=== PATIENT | male | born 1960 | race Caucasian/White ===

== ENCOUNTER 2017-08-09 06:36 | Day surgery (SDC) | payer OTHER ==
[2017-08-09] MEDS ORDERED: BUPIVACAINE 0.25% 30 ML SDV ONE (07:07)
[2017-08-09] MEDS ORDERED: LR 1,000 ML IV ONE (07:07)
[2017-08-09] MEDS ORDERED: CLINDAMYCIN 900 MG/DEXTROSE 50 ML IV ONE (07:07)
[2017-08-09] MEDS ORDERED: LIDOCAINE 1% 2 ML INJ ID PRN (07:38)
[2017-08-09] MEDS ORDERED: LIDOCAINE 1% 2 ML INJ ONE (07:40)
--- NOTE | 2017-08-09 07:52 | PDHPUP ---
History & Physical Update H&P update statement: This history and physical update is based on an assessment of the patient which was completed after admission or registration (within 24 hours), but prior to the surgery/procedure. H&P update: H&P reviewed & patient examined, no change in patient's condition since H&P completed
[2017-08-09] MEDS ORDERED: MIDAZOLAM 2 MG/2 ML VIAL IVP ONE (07:57)
--- NOTE | 2017-08-09 07:57 | PDANEPAE ---
ANE History of Present Illness B IH laparoscopic repair ANE Past Medical History - Cardiovascular History Hx Hypertension: Yes Hx Arrhythmias: No Hx Chest Pain: No Hx Coronary Artery / Peripheral Vascular Disease: No Hx CHF / Valvular Disease: No Hx Palpitations: No - Pulmonary History Hx COPD: No Hx Asthma/Reactive Airway Disease: No Hx Recent Upper Respiratory Infection: No Hx Oxygen in Use at Home: No Hx Sleep Apnea: No Pulmonary History Comment: Allergic rhinitis - Neurologic History Hx Cerebrovascular Accident: No Hx Seizures: No Hx Dementia: No - Endocrine History Hx Diabetes: No - Renal History Hx Renal Disorders: No - Liver History Hx Hepatic Disorders: No - Neurological & Psychiatric Hx Hx Neurological and Psychiatric Disorders: No - Cancer History Hx Cancer: No - Congenital Disorder History Hx Congenital Disorders: No - GI History Hx Gastrointestinal Disorders: No - Other Health History Other Health History: n/a - Chronic Pain History Chronic Pain: No - Surgical History Prior Surgeries: R tibia 1974. R knee 1982. Cholysectomy 2011 ANE Review of Systems Review of systems is: negative Review of Systems: - Exercise capacity METS (RN): 5 METS ANE Patient History - Allergies Allergies/Adverse Reactions: Penicillins Allergy (Verified 08/09/17 07:34) - Home Medications Home medications: home medication list seen and reviewed Home Medications: Losartan Potassium 08/09/17 [Last Taken 08/08/17] - NPO status NPO Status: no food or drink >8 hours NPO Since - Liquids (Date): 08/09/17 NPO Since - Liquids (Time): 00:00 NPO Since - Solids (Date): 08/08/17 NPO Since - Solids (Time): 22:00 - Anes Hx Anes Hx: no prior problems - Smoking Hx Smoking Status: Never smoked - Family Anes Hx Family Anes Hx: none Family Hx Anesthesia Complications: none. ANE Labs/Vital Signs - Vital Signs Vital Signs: reviewed preoperatively; see RN documention for details Blood Pressure: 145/97 Heart Rate: 65 Respiratory Rate: 18 O2 Sat (%): 99 Height: 185.42 cm Weight: 92.079 kg ANE Physical Exam - Airway Neck exam: FROM Mallampati Score: Class 1 Mouth exam: normal dental/mouth exam - Pulmonary Pulmonary: no respiratory distress - Cardiovascular Cardiovascular: regular rate and rhythym - ASA Status ASA Status: II ANE Anesthesia Plan Anesthesia Plan: general endotracheal anesthesia
[2017-08-09] MEDS ORDERED: DEXAMETHASONE 4 MG/ML VIAL ONE (08:12)
[2017-08-09] MEDS ORDERED: ROCURONIUM 50 MG/5 ML VIAL ONE (08:12)
[2017-08-09] MEDS ORDERED: PROPOFOL 200 MG/20 ML VIAL ONE ×2 (08:12→08:34)
[2017-08-09] MEDS ORDERED: ONDANSETRON 4 MG/2 ML VIAL ONE (08:12)
[2017-08-09] MEDS ORDERED: LIDOCAINE 2% 100 MG/5 ML SYR ONE (08:12)
[2017-08-09] MEDS ORDERED: fentaNYL 250 MCG/5 ML INJ ONE (08:12)
[2017-08-09] MEDS ORDERED: SUGAMMADEX SODIUM 200 MG/2 ML VIAL IVP ONE (08:12)
[2017-08-09] MEDS ORDERED: MEPERIDINE 25 MG/0.5 ML AMP IVP PRN (09:07)
[2017-08-09] MEDS ORDERED: ENALAPRILAT DIHYDRATE 1.25 MG/ML VIAL IVP PRN (09:07)
[2017-08-09] MEDS ORDERED: PROMETHAZINE HCL 25 MG/ML INJ IVP PRN (09:07)
[2017-08-09] MEDS ORDERED: HYDROmorphONE/DILAUDID 1 MG/ML INJ IVP PRN (09:07)
[2017-08-09] MEDS ORDERED: ACETAMINOPHEN 500 MG TAB PO PRN (09:07)
[2017-08-09] MEDS ORDERED: HYDROCODONE/APAP 5/325 TAB PO PRN (09:07)
[2017-08-09] MEDS ORDERED: NALOXONE HCL 0.4 MG/ML INJ IVP PRN (09:07)
[2017-08-09] MEDS ORDERED: ONDANSETRON 4 MG/2 ML VIAL IVP PRN (09:07)
[2017-08-09] MEDS ORDERED: fentaNYL 100 MCG/2 ML INJ IVP PRN (09:07)
[2017-08-09] MEDS ORDERED: DEXAMETHASONE 4 MG/ML VIAL IVP PRN (09:07)
--- NOTE | 2017-08-09 09:10 | POSTANESTH ---
Post Anesthetic Evaluation Cardiovascular Status: Normal, Stable, Similar to Pre-Op Cond Respiratory Status: Normal, Stable, Similar to Pre-op Cond. Level of Consciousness/Mental Status: Can Participate in Eval, Mildly Sleepy, Arousable Pain Control: Adequate, Prn Tx Ordered Nausea/Vomiting Control: Adequate, Prn Tx Ordered Complications Possibly Related to Anesthesia: None Noted
[2017-08-09] MEDS ORDERED: THROMBIN (BOVINE) 20,000 UNIT SPRAY TP ONE (09:13)
--- NOTE | 2017-08-09 09:45 | POSTOPPROG ---
Post Op Note Date of Operation: 08/09/17 Surgeon: Jason Mclaughlin Funeral Assistant: Dennise Lindsay Anesthesiologist: Manish Oglesby Anesthesia: GET(General Endotracheal) Pre-op Diagnosis: BIH Post-op Diagnosis: same Procedure: lap BIH repair c mesh Findings: indirect sac with cord lipoma on right, direct hernia on left Inf/Abcess present in the surg proc area at time of surgery?: No EBL: 20cc Complications: none Specimen(s): none
[2017-08-09] MEDS ORDERED: oxyCODONE IR 5 MG TAB ONE ×2 (10:12→11:36)
[2017-08-09] MEDS: oxyCODONE IR 5 MG TAB PO PRN ×2 (10:14→11:38)
--- NOTE | 2017-08-09 10:51 | GOP ---
[f rep st] OPERATIVE REPORT DATE OF OPERATION: 08/09/2017 SURGEON: Jason Mclaughlin MD TANKAGE SUPERVISOR: CHANNING Yu. ANESTHESIOLOGIST: Manish Oglesby MD. PREOPERATIVE DIAGNOSIS: Bilateral inguinal hernias. POSTOPERATIVE DIAGNOSIS: Bilateral inguinal hernias. PROCEDURE PERFORMED: Laparoscopic bilateral inguinal hernia repairs with mesh. FINDINGS: The patient was found to have a large indirect sac on the left which was his symptomatic s nate. On the right he had a direct defect, but no indirect sac. ESTIMATED BLOOD LOSS: Negligible. DESCRIPTION OF PROCEDURE: The patient was taken to the operating room where he received a satisfacto ry general endotracheal anesthesia by Dr. Oglesby. He was placed in the supine position, prepped an d draped in the usual sterile fashion. An infraumbilical incision was made. Dissection extended yuli n to the rectus sheath which was incised. A subfascial tunnel was developed in the preperitoneal spa ce that was gently dissected free with a balloon dissector which was replaced with a CO2 insufflation trocar. 2 other trocars were placed under direct vision in the lower midline. Ti ligament was exposed bilaterally. The cords were mobilized bilaterally. Peritoneum was dissected off the cord st ructures on the right. There was no significant indirect sac. On the left there was a large indirec t sac which was dissected free and reduced. Its contents were reduced as well. Hemostasis was obtai dorita. Both sides had some soft lipomatous tissue that was also removed from the cord. On the right a Covidien polyester mesh split patch was placed. It passed the limb around the cord structures. It was anchored in place with AbsorbaTack, securing it to Ti ligament, to the lacunar ligament, to t he anterior abdominal wall and the lateral abdominal wall outside the internal ring. On the right si de, an onlay Covidien polyester mesh patch was placed and anchored in a similar manner. The wound wa s irrigated. Hemostasis was assured. Trocars removed under direct vision. Some topical thrombin wa s placed in the preperitoneal space and while pre peritoneum was released, and trocar sites were clos ed with 0 Vicryl for the fascia, 4-0 Monocryl subcuticular stitch for the skin. All layers infiltrat ed with 0.5% Marcaine. COMPLICATIONS: None. /[id number]/MODL
[2017-08-09 12:16] VITALS: BP 143/91
== END 2017-08-09 12:30 | disposition home or self-care (01) ==
LOC: FSGY 06:36
PROVIDERS: ATTEND Surgery
PROC: 0YQA4ZZ Repair Bilateral Inguinal Region, Percutaneous Endoscopic Approach (ICD-10-PCS; principal; 2017-08-09 08:15)
PROC: 0YUA4JZ Supplement Bilateral Inguinal Region with Synthetic Substitute, Percutaneous Endoscopic Approach (ICD-10-PCS; principal; 2017-08-09 08:15)
DX: K40.20 Bilateral inguinal hernia, without obstruction or gangrene, not specified as recurrent (principal)
CPT/HCPCS: C1727; C1781; J1100; J2001; J2250; J2405; J2704; J3010

== ENCOUNTER → 2017-12-08 | Outpatient (CLI) | payer OTHER ==
[~2017-12-08] MED LIST: DEPO METHYLPREDNISOLONE 40 MG/ML SDV ONE; LIDOCAINE 1% 300 MG/30 ML SDV ONE
== END ==
LOC: FIMAGING 12:50
PROVIDERS: ATTEND Internal Medicine
DX: M25.461 Effusion, right knee (principal)
CPT/HCPCS: J1030